=== PATIENT | female | born 1955 | race Caucasian/White ===

== ENCOUNTER 2017-12-23 12:35 | Emergency (ER) | payer OTHER ==
[~2017-12-23] VITALS: Ht 152.4 cm; Wt 73.6 kg
[~2017-12-23 12:35] MED LIST: AMOX250C4 PO; LISI2.5T2 PO
[2017-12-23] MEDS ORDERED: OMEP20 PO (12:38)
[2017-12-23] MEDS ORDERED: KETOROLAC TROMETHAMINE 10 MG TABLET PO ONE (14:15)
[2017-12-23] MEDS ORDERED: KETOROLAC TROMETHAMINE 60 MG/2 ML VIAL IM ONE (14:30)
[2017-12-23] MEDS ORDERED: ACETAMINOPHEN/CODEINE 300-30 MG TABLET PO ONE (14:30)
[2017-12-23 15:26] VITALS: BP 125/71
== END 2017-12-23 15:40 | disposition home or self-care (01) ==
LOC: EMS 12:35
DX: S46.912A Strain of unspecified muscle, fascia and tendon at shoulder and upper arm level, left arm, initial encounter (principal); I10 Essential (primary) hypertension; X58.XXXA Exposure to other specified factors, initial encounter; Y93.89 Activity, other specified; Y92.89 Other specified places as the place of occurrence of the external cause; Y99.8 Other external cause status
CPT/HCPCS: 29240; 73030; 96372; 99284; J1885

== ENCOUNTER 2018-10-15 08:48 | Emergency (ER) | payer OTHER ==
[~2018-10-15] VITALS: Ht 152.4 cm; Wt 68.2 kg
[~2018-10-15 08:48] MED LIST changes: -AMOX250C4 PO; +OMEP20 PO
[2018-10-15] MEDS ORDERED: PRAV10TA39 PO (08:54)
[2018-10-15] MEDS ORDERED: KETOROLAC TROMETHAMINE 60 MG/2 ML VIAL IM ONE (09:30)
[2018-10-15 12:25] VITALS: BP 133/70
== END 2018-10-15 12:38 | disposition home or self-care (01) ==
LOC: EMS 08:50
DX: R51 Headache (principal); I10 Essential (primary) hypertension; Z79.899 Other long term (current) drug therapy
CPT/HCPCS: 70450; 96372; 99284; J1885